=== PATIENT | male | born 1985 | race Caucasian/White ===

== ENCOUNTER 2017-09-23 09:23 | Emergency (ER) | payer SELFPAY ==
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
[2017-09-23] MEDS ORDERED: Tetan/Diph/Pertus SYR(Tdap)* 0.5 ML SYR(BOOSTRIX) use SYR IM ONE (10:34)
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
[2017-09-23 12:45] VITALS: BP 142/92
== END 2017-09-23 12:44 | disposition home or self-care (01) ==
LOC: ED 09:23
DX: T14.8XXA Other injury of unspecified body region, initial encounter (principal); V89.2XXA Person injured in unspecified motor-vehicle accident, traffic, initial encounter; Y92.9 Unspecified place or not applicable
CPT/HCPCS: 71020; 90471; 90715; 99282